=== PATIENT | male | born 1995 | race African-American/Black ===

== ENCOUNTER 2018-01-11 18:30 | Emergency (ER) | payer OTHER ==
[2018-01-11 18:36] VITALS: BP 130/71
--- NOTE | 2018-01-11 19:11 | RADIOLOGY REPORT (SQ) ---
EXAM DESCRIPTION: ANKLE LEFT COMPLETE COMPLETED DATE/TIME: 01/11/2018 6:57 pm REASON FOR STUDY: pain s/p injury COMPARISON: None. NUMBER OF VIEWS: Three views. TECHNIQUE: AP, lateral, and oblique radiographic images acquired of the left ankle. LIMITATIONS: None. FINDINGS: MINERALIZATION: Normal. BONES: No acute fracture or dislocation. No worrisome bone lesions. JOINTS: No effusions. SOFT TISSUES: No soft tissue swelling. No foreign body. OTHER: No other significant finding. IMPRESSION: NEGATIVE STUDY OF THE LEFT ANKLE. NO RADIOGRAPHIC EVIDENCE OF ACUTE INJURY. TECHNICAL DOCUMENTATION: JOB ID: [id number] [email or web address] All Rights Reserved Reading location - IP/workstation name: [email or web address]
[2018-01-11] MEDS ORDERED: IBUPROFEN 600 MG TABLET PO ONE (19:29)
--- NOTE | 2018-01-11 19:36 | ER Document Report ---
ED Extremity Problem, Lower - General Chief Complaint: Ankle Injury Stated Complaint: ANKLE INJURY Time Seen by Provider: 01/11/18 18:58 Mode of Arrival: Ambulatory Information source: Patient TRAVEL OUTSIDE OF THE [place] IN LAST 30 DAYS: No - HPI Patient complains to provider of: Injury, Pain Location: Ankle Occurred: Just prior to arrival Where: Work Recent injury: Yes Notes: Patient is here with complaints of left ankle pain. 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 When he got to the last step he missed the step and inverted his left ankle. He now has left lateral ankle pain. He denies any foot or knee pain. He denies falling or striking his head. No loss of consciousness. He denies any fever. No numbness, tingling, weakness. No chest pain shortness of breath. He states the pain is worse with any sort of movement or weightbearing, is better with rest. He denies any other injuries or other complaints at this time. - Related Data Allergies/Adverse Reactions: No Known Allergies Allergy (Unverified 01/11/18 19:25) Past Medical History - Social History Smoking Status: Never Smoker Chew tobacco use (# tins/day): No Frequency of alcohol use: None Drug Abuse: Marijuana Family History: Reviewed & Not Pertinent Patient has suicidal ideation: No Patient has homicidal ideation: No Renal/ Medical History: Denies: Hx Peritoneal Dialysis Past Surgical History: Reports: Hx Orthopedic Surgery - left femur broken twice Review of Systems - Review of Systems -: Yes All other systems reviewed and negative Physical Exam - Vital signs Vitals: Temp Pulse Resp BP Pulse Ox 98.8 F 93 17 130/71 H 98 01/11/18 18:35 01/11/18 18:35 01/11/18 18:35 01/11/18 18:35 01/11/18 18:35 - Notes Notes: GENERAL: alert, cooperative, nontoxic, no distress. HEAD: normocephalic, atraumatic EYES: conjunctiva pink without discharge, no external redness or swelling. EARS: no external swelling, no external redness NOSE: atraumatic, no external swelling MOUTH/THROAT: mucous membranes moist and pink NECK: soft, supple, full range of motion, no meningismus. CHEST: no distress, lungs clear and equal throughout. No wheezing, rales, rhonchi. CARDIAC: regular rate and rhythm, no murmur, normal capillary refill, normal pulses. BACK: full range of motion, no CVA tenderness. EXTREMITIES: Swelling and tenderness to the left lateral malleolus. Minimal tenderness to the medial malleolus. No tenderness to the foot. No proximal tib -fib tenderness. Achilles is intact with a normal West's test. No obvious ligament instability. Limited range of motion secondary to pain and swelling. Normal pulse and sensation. NEURO: alert and oriented 3, no focal deficits, full range of motion of all extremities. PYSCH: appropriate mood, affect. Patient is cooperative. SKIN: pink, warm, dry, no rash. Course - Re-evaluation Re-evalutation: 01/11/18 19:35 Patient is nontoxic-appearing with stable vitals. The patient is here with complaints of left ankle pain. He was moving a washer or dryer in his last step inverting his ankle. He is noted to have swelling to the lateral ankle. No foot or proximal tib-fib tenderness. Compartments are soft. Normal neurovascular exam. X-rays are negative for fractures. There is no signs of infection. The remainder the patient's exam is unremarkable. The patient had an x-ray which was negative for fracture. He was placed in a ankle stirrup splint and given crutches to use as needed for pain. He is instructed to rest, ice, elevate. He will be given a prescription for Naprosyn. He is instructed to follow-up with orthopedics or work health if not better in the next week, sooner for worsening pain, fever, numbness, tingling, weakness, any further concerns. The patient is noted to have elevated blood pressure during today's emergency department visit. The patient was informed of this finding. The patient was instructed that this may be related to pre-hypertension and requires further evaluation with a primary care provider. The patient has no hypertensive symptoms at this time. The patient's emergency department workup and current diagnosis were explained to the patient and or family. Follow-up instructions were provided. Medications if prescribed were discussed. Instructions for when to return to the emergency department including specific worrisome symptoms were discussed with the patient and/or family. - Vital Signs Vital signs: Temp Pulse Resp BP Pulse Ox 98.8 F 93 17 130/71 H 98 01/11/18 18:35 01/11/18 18:35 01/11/18 18:35 01/11/18 18:35 01/11/18 18:35 - Diagnostic Test Radiology reviewed: Image reviewed, Reports reviewed - Negative left ankle Procedures - Immobilization left Ankle Pre-Proc Neuro Vasc Exam: Normal Immobilizer type: Ankle stirrup Performed by: PCT Post-Proc Neuro Vasc Exam: Normal Alignment checked and good: Yes Discharge - Discharge Clinical Impression: Left ankle sprain Qualifiers: Encounter type: initial encounter Involved ligament of ankle: other ligament Qualified Code(s): S93.492A - Sprain of other ligament of left ankle, initial encounter Condition: Stable Disposition: HOME, SELF-CARE Instructions: Ankle Stirrup Splint ([facility]), Ice & Elevation ([facility]), Use of Crutches ([facility]), Sprained Ankle ([facility]) Additional Instructions: Take medications as prescribed. Wear splint and use crutches as needed for pain. Rest, ice, elevate. Follow-up if not better in 1 week, sooner for worsening pain, fever, numbness, tingling, weakness, redness, any further concerns. Your blood pressure was elevated during today's visit. Have this rechecked with your doctor. Prescriptions: Naproxen [Naprosyn] 500 mg PO BID #20 tablet Forms: Elevated Blood Pressure Referrals: LORIN MCDERMOTT DO [ACTIVE STAFF] - Follow up as needed
== END 2018-01-11 20:00 | disposition home or self-care (01) ==
LOC: ER 18:30
DX: S93.402A Sprain of unspecified ligament of left ankle, initial encounter (principal); X50.0XXA Overexertion from strenuous movement or load, initial encounter; Y93.89 Activity, other specified; Y99.0 Civilian activity done for income or pay; F12.10 Cannabis abuse, uncomplicated; R03.0 Elevated blood-pressure reading, without diagnosis of hypertension
CPT/HCPCS: 99283; 73610; L1902

== ENCOUNTER 2018-09-14 20:34 | Emergency (ER) | payer SELFPAY ==
[2018-09-14 20:44] VITALS: BP 130/76
--- NOTE | 2018-09-14 23:33 | ER Document Report ---
ED Flu Like - General Chief Complaint: Flu Symptoms Stated Complaint: SORE THROAT,HEADACHE,VOMITING Time Seen by Provider: 09/14/18 23:33 Primary Care Provider: GLO CHRISTENSEN [Primary Care Provider] - Follow up as needed Mode of Arrival: Ambulatory Information source: Patient Notes: HISTORY OF PRESENT ILLNESS: Patient is a 23-year-old male with no significant past medical history who presents with fever with body aches and chills for the past 2 days. 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 Denies recent illness until 2 days ago. EENT: Denies eye, ear, throat, or mouth pain or symptoms. Denies nasal or sinus congestion. CARDIOVASCULAR: Denies chest pain. RESPIRATORY: Positive for cough and congestion. Denies shortness of breath, dif ficulty breathing, or wheezing. GASTROINTESTINAL: Denies abdominal pain. Denies nausea, vomiting, or diarrhea. Denies constipation. GENITOURINARY: Denies difficulty urinating, painful urination, burning, frequency, or blood in urine.. MUSCULOSKELETAL: Positive for body aches. Denies neck or back pain or joint pain or swelling. SKIN: Denies rash or skin lesions. HEMATOLOGIC : Denies easy bruising or bleeding. LYMPHATIC: Denies swollen, enlarged glands. NEUROLOGICAL: Denies altered mental status or loss of consciousness. Denies headache. Denies weakness or paralysis or loss of use of either side. Denies problems with gait or speech. Denies sensory or motor loss. PSYCHIATRIC: Denies anxiety or stress or depression. All other systems reviewed and negative. PHYSICAL EXAMINATION: GENERAL: Well-appearing, well-nourished and in no acute distress. HEAD: Atraumatic, normocephalic. No scalp deformity, depression, or crepitance. EYES: Pupils are 3 mm and equal/round/reactive to light, extraocular movements intact, sclera anicteric, conjunctiva are normal. ENT: Nares patent bilaterally, oropharynx clear without exudates or palatal petechia. Moist mucous membranes. No tonsil hypertrophy. NECK: Normal range of motion, supple without lymphadenopathy. LUNGS: Breath sounds present, equal, and clear to auscultation bilaterally. No wheezes, rales, or rhonchi. HEART: Regular rate and rhythm without murmurs, rubs, or gallops. 2+ peripheral pulses. Normal capillary refill. ABDOMEN: Soft, nontender, nondistended. Normoactive bowel sounds. No guarding, no rebound. No masses appreciated. BACK: Normal contour, no midline tenderness. Rectal exam deferred. EXTREMITIES: Normal range of motion, no pitting or edema. No cyanosis. NEUROLOGICAL: No focal neurological deficits. Moves all extremities spontaneously and on command. PSYCH: Normal mood, normal affect. No suicidal thoughts/ideations. No homocidal thoughts/ideations. No hallucinations. SKIN: Warm, dry, normal turgor, no rashes or lesions noted. ASSESSMENT AND PLAN: This patient is a 23-year-old male who presents with likely viral syndrome, however given his exposures could also be influenza. 1. Will empirically treat with Tamiflu as well as Tussionex. 2. Will discharge home with return precautions and follow-up. Patient voices both understanding and agreeing with plan. TRAVEL OUTSIDE OF THE [place] IN LAST 30 DAYS: No - Related Data Allergies/Adverse Reactions: No Known Allergies Allergy (Unverified 01/11/18 19:25) Past Medical History - General Information source: Patient - Social History Smoking Status: Unknown if Ever Smoked Chew tobacco use (# tins/day): No Frequency of alcohol use: None Drug Abuse: None Lives with: Family Family History: Reviewed & Not Pertinent Patient has suicidal ideation: No Patient has homicidal ideation: No - Medical History Medical History: Negative - Past Medical History Cardiac Medical History: Reports: None Pulmonary Medical History: Reports: None EENT Medical History: Reports: None Neurological Medical History: Reports: None Endocrine Medical History: Reports: None Renal/ Medical History: Reports: None. Denies: Hx Peritoneal Dialysis Malignancy Medical History: Reports None GI Medical History: Reports: None Musculoskeletal Medical History: Reports None Skin Medical History: Reports None Psychiatric Medical History: Reports: None Traumatic Medical History: Reports: None Infectious Medical History: Reports: None Surgical Hx: Negative Past Surgical History: Reports: None, Hx Orthopedic Surgery - left femur broken twice - Immunizations Immunizations up to date: Yes Hx Diphtheria, Pertussis, Tetanus Vaccination: Yes History of Influenza Vaccine for 04/2017 - 09/2017 Season: No Physical Exam - Vital signs Vitals: Temp Pulse Resp BP Pulse Ox 98.6 F 91 16 130/76 H 96 09/14/18 20:37 09/14/18 20:37 09/14/18 20:37 09/14/18 20:37 09/14/18 20:37 Course - Vital Signs Vital signs: Temp Pulse Resp BP Pulse Ox 98.6 F 91 16 130/76 H 96 09/14/18 20:37 09/14/18 20:37 09/14/18 20:37 09/14/18 20:37 09/14/18 20:37 Discharge - Discharge Clinical Impression: Viral syndrome Condition: Good Disposition: HOME, SELF-CARE Instructions: Viral Syndrome ([facility]), Family Physicians / Practices Additional Instructions: You have been evaluated in the Emergency Department for fever, cough, and congestion with body aches. Most likely cause is from a virus, but could include influenza. You have been given prescriptions for medications, please take these as instructed. Please follow-up with your primary physician as instructed in 1 week to be rechecked. Return to the Emergency Department if you experience worsening fevers, have difficulty breathing, have chest pain, or any other concerning symptoms. Prescriptions: Hydrocodone/Chlorphen P-Stirex [Tussionex Pennkinetic Susp] 10 ml PO BID #150 von.er.12h Oseltamivir Phosphate [Tamiflu 75 mg Capsule] 75 mg PO BID #10 capsule Forms: Return to Work Referrals: LOCALMD,NO [Primary Care Provider] - Follow up as needed Print Language: Georgian
[2018-09-15] MEDS ORDERED: DEXAMETHASONE SOD PHOS INJ 10 MG/1 ML VIAL IM ONE (00:47)
== END 2018-09-15 01:15 | disposition home or self-care (01) ==
LOC: ER 20:34
DX: B34.9 Viral infection, unspecified (principal); J02.9 Acute pharyngitis, unspecified; M79.10 Myalgia, unspecified site
CPT/HCPCS: 99283; 96372; J1100